=== PATIENT | male | born 1985 | race Caucasian/White ===

== ENCOUNTER 2017-01-20 20:32 | Observation (INO) | payer OTHER ==
[~2017-01-20] VITALS: Ht 177.8 cm; Wt 112.2 kg
[~2017-01-20 20:32] MED LIST: Z.0.NO CURRENT MEDS
[2017-01-20 20:35] VITALS: BP 169/87; PULSE 99; RESP 16; TEMP 98.4; O2SAT 99
--- NOTE | 2017-01-20 22:06 | RADRPT ---
EXAM DATE/TIME: 01/20/2017 20:58 [place] COMPARISON: No previous studies available for comparison. INDICATIONS : Chest pain. MEDICAL HISTORY : None. SURGICAL HISTORY : None. ENCOUNTER: Initial ACUITY: 3 days PAIN SCORE: 6/10 LOCATION: Bilateral chest FINDINGS: PA and lateral views of the chest demonstrate the lungs to be symmetrically aerated without evidence of mass, infiltrate or effusion. The cardiomediastinal contours are unremarkable. Osseous structure s are intact. CONCLUSION: Normal examination. Tru Chacko MD on January 20, 2017 at 22:04 Board Certified Radiologist. This report was verified electronically.
--- NOTE | 2017-01-20 22:36 | PD ---
HPI Chief Complaint: Chest Pain Time Seen by Provider: 22:35 Travel History International Travel<30 days: No Contact w/Intl Traveler<30days: No Traveled to known affect area: No History of Present Illness HPI 31-year-old male came to the emergency room with history of chest pain for past 1 week. Patient says that the pain is in different locations of his chest mostly anteriorly. He is also been getting it on the left side of his chest just below his left breast. It concerned him because is not getting better and patient wanted to make sure that it is not his heart. No aggravating or relieving factors identified. He is otherwise a healthy person. 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 However he stopped taking it 6 months ago because his primary care told him it was not needed. Currently his pain is 0 out of 10. Vital signs were stable. Patient does not appear to be in any significant distress. He is not a smoker. His maternal grandmother of heart attack in her 60s. No respiratory distress, shortness of breath, syncopal episode or any other associated symptoms. [facility] Past Medical History Narrative Medical List of his past medical, surgical, social and family history is reviewed from the nursing note. Asthma: Yes Social History Alcohol Use: Yes (SOCIAL) Tobacco Use: No Allergies-Medications (Allergen,Severity, Reaction): Coded Allergies: succinylcholine (Verified Allergy, Severe, 01/20/17) Comments List of his allergies reviewed from the nursing note. Reported Meds & Prescriptions Reported Meds & Active Scripts Active Reported No Current Meds (Miscellaneous Medication) [facility] Narrative Medication List of his home medications reviewed from the nursing note. Review of Systems Except as stated in HPI: all other systems reviewed are Neg Cardiovascular: Positive: Chest Pain or Discomfort Physical Exam Narrative GENERAL: Awake, alert, no obvious distress SKIN: Focused skin assessment warm/dry. HEAD: Atraumatic. Normocephalic. EYES: Pupils equal and round. No scleral icterus. No injection or drainage. ENT: No nasal bleeding or discharge. Mucous membranes pink and moist. NECK: Trachea midline. No JVD. CARDIOVASCULAR: Regular rate and rhythm. No murmur appreciated. RESPIRATORY: No accessory muscle use. Clear to auscultation. Breath sounds equal bilaterally. GASTROINTESTINAL: Abdomen soft, non-tender, nondistended. Hepatic and splenic margins not palpable. MUSCULOSKELETAL: No obvious deformities. No clubbing. No cyanosis. No edema. NEUROLOGICAL: Awake and alert. No obvious cranial nerve deficits. Motor grossly within normal limits. Normal speech. PSYCHIATRIC: Appropriate mood and affect; insight and judgment normal. Data Data Last Documented VS Vital Signs Date Time Temp Pulse Resp B/P (MAP) Pulse Ox O2 Delivery O2 Flow Rate FiO2 01/20/17 22:38 70 98 Room Air 01/20/17 22:33 (114) 01/20/17 20:35 98.4 16 Orders Orders Electrocardiogram (01/20/17 20:45) Basic Metabolic Panel (Bmp) (01/20/17 20:45) Complete Blood Count With Diff (01/20/17 20:45) Chest, Pa & Lat (01/20/17 20:45) D-Dimer (01/20/17 22:46) Aspirin Chew (Aspirin Chew) (01/20/17 23:00) Ketorolac Inj (Toradol Inj) (01/20/17 23:00) Troponin I (01/20/17 23:24) Labs Laboratory Tests Test 01/20/17 21:40 01/20/17 22:50 White Blood Count 9.4 TH/MM3 Red Blood Count 5.28 MIL/MM3 Hemoglobin 15.7 GM/DL Hematocrit 45.6 % Mean Corpuscular Volume 86.3 FL Mean Corpuscular Hemoglobin 29.8 PG Mean Corpuscular Hemoglobin Concent 34.5 % Red Cell Distribution Width 13.0 % Platelet Count 310 TH/MM3 Mean Platelet Volume 10.2 FL Neutrophils (%) (Auto) 51.3 % Lymphocytes (%) (Auto) 36.4 % Monocytes (%) (Auto) 7.5 % Eosinophils (%) (Auto) 3.7 % Basophils (%) (Auto) 1.1 % Neutrophils # (Auto) 4.8 TH/MM3 Lymphocytes # (Auto) 3.4 TH/MM3 Monocytes # (Auto) 0.7 TH/MM3 Eosinophils # (Auto) 0.4 TH/MM3 Basophils # (Auto) 0.1 TH/MM3 CBC Comment DIFF FINAL Differential Comment Blood Urea Nitrogen 11 MG/DL Creatinine 0.92 MG/DL Random Glucose 108 MG/DL Calcium Level 9.5 MG/DL Sodium Level 138 MEQ/L Potassium Level 3.7 MEQ/L Chloride Level 104 MEQ/L Carbon Dioxide Level 24.2 MEQ/L Anion Gap 10 MEQ/L Estimat Glomerular Filtration Rate 95 ML/MIN D-Dimer Quantitative (PE/DVT) LESS THAN 0.19 MG/L FEU [facility] Medical Decision Making Medical Screen Exam Complete: Yes Emergency Medical Condition: Yes Medical Record Reviewed: Yes Interpretation(s) Twelve-lead EKG was reviewed by me. Normal sinus rhythm, normal axis, nonspecific ST-T wave changes. Heart rate of 68 bpm. Differential Diagnosis ACS, non-STEMI, nonspecific chest pain, PE Narrative Course 12:02 AM chest x-rays within normal limits. D-dimer is negative and I'm comfortable ruling out PE based on that. CBC and BMP is within normal limit. His troponin is negative as well. Patient has a remote family history of coronary artery disease. Since this has been going on for past 1 week on and off I would like to keep him and chest pain center and rule out ACS as per the marine oiler's discretion. Procedures EKG Prior to Arrival: No Diagnosis Primary Impression: Chest pain Qualified Codes: R07.9 - Chest pain, unspecified Admitting Information Admitting Physician Requests: Observation Alpa Barnett MD Jan 20, 2017 22:36
[2017-01-20] MEDS ORDERED: ASPIRIN 81 MG CHEW TAB CHEW ONE (23:00)
[2017-01-20] MEDS ORDERED: KETOROLAC TROMETHAMINE 30 MG/ML (IVP) VIAL IV PUSH ONE (23:00)
[2017-01-20 23:11] LABS: BICARBONATE 24.2 MEQ/L (21.0-32.0); POTASSIUM 3.7 MEQ/L (3.5-5.1)
[2017-01-20 23:13] LABS: AUTOMATED NEUTROPHIL # 4.8 TH/MM3 (1.8-7.7); BASOPHIL # 0.1 TH/MM3 (0-0.2); BASOPHIL % 1.1 % (0.0-2.0); EOSINOPHIL # 0.4 TH/MM3 (0-0.4); EOSINOPHIL % 3.7 % (0.0-4.0); HEMATOCRIT 45.6 % (39.0-51.0); HEMO FLAGS DIFF FINAL; LYMPH % 36.4 % (9.0-44.0); LYMPHOCYTE # 3.4 TH/MM3 (1.0-4.8); MEAN CELL VOLUME 86.3 FL (80.0-100.0); MEAN CORPUSCULAR HEMOGLOBIN 29.8 PG (27.0-34.0); MEAN CORPUSCULAR HGB CONC 34.5 % (32.0-36.0); MONO % 7.5 % (0.0-8.0); NEUT % 51.3 % (16.0-70.0); PLATELET COUNT 310 TH/MM3 (150-450); RED BLOOD COUNT 5.28 MIL/MM3 (4.50-5.90); WHITE BLOOD COUNT 9.4 TH/MM3 (4.0-11.0)
[2017-01-21] MEDS ORDERED: ONDANSETRON HCL 4 MG/2 ML VIAL IV PUSH PRN (00:15)
[2017-01-21] MEDS ORDERED: ACETAMINOPHEN 500 MG CPLT PO PRN (00:15)
[2017-01-21] MEDS ORDERED: NITROGLYCERIN 0.4 MG SL 25 TABS/BTL SL PRN (00:15)
[2017-01-21] MEDS ORDERED: SODIUM CHLORIDE 0.9% FLUSH 10 ML FLUSH IV FLUSH PRN (00:15)
[2017-01-21] MEDS ORDERED: CETI-1 PO (00:47)
[2017-01-21] MEDS ORDERED: FLUT1SPR5 EACH NARE (00:47)
[2017-01-21 01:28] LABS: CREATINE KINASE 121 U/L (39-308)
[2017-01-21 01:40] LABS: CKMB 0.9 NG/ML (0.5-3.6)
[2017-01-21 01:49] VITALS: BP 125/63; PULSE 60; RESP 18; O2SAT 98
[2017-01-21 04:05] VITALS: BP 109/61; PULSE 65; RESP 16; O2SAT 98
[2017-01-21 04:42] LABS: CREATINE KINASE 133 U/L (39-308)
[2017-01-21 04:55] LABS: CKMB 0.9 NG/ML (0.5-3.6)
[2017-01-21 06:39] VITALS: PULSE 64; RESP 18; O2SAT 100
[2017-01-21 07:42] VITALS: BP 117/61; PULSE 80; RESP 20; O2SAT 100
--- NOTE | 2017-01-21 08:49 | HHI.HP ---
HPI Primary Care Physician Preston Dorado, III Chief Complaint Chest pain History of Present Illness This is a 31-year-old male that presents to ED via private vehicle complaining of intermittent left-sided chest discomfort for 1 week. He's found nothing to bring on the discomfort. States they've been very random. Usually lasts seconds when occurs. No associated shortness breath, nausea, or diaphoresis. States the worst discomfort occurred when it was a little lower on the left side of his chest and then it radiated to the left side of his back but other than that the discomfort never radiated.. That also lasted seconds. Eyes cardiac history. Denies recent illnesses. Review of Systems General: Patient denies fevers, chills recent, and recent travel HEENT: Patient denies headache, sore throat, difficulty swallowing. Cardiovascular: Has the chest discomfort as mentioned above. Denies sensation of heart beating rapidly or irregularly. No syncope. Denies diaphoresis. Respiratory: Denies shortness of breath or inspirational chest discomfort. Denies coughing wheezing or hemoptysis. GI: Patient denies nausea, vomiting, diarrhea, abdominal pain, bloody stools. Musculoskeletal: Patient denies joint pain or edema. Denies calf pain or edema. Neurovascular: Patient denies numbness, tingling, weakness in extremities. Denies headache. Endocrine: Denies polyuria and polydipsia. Hematologic: Denies easy bruising. Skin: Denies rash or itching. Past Family Social History Allergies: Coded Allergies: succinylcholine (Verified Allergy, Severe, 01/20/17) cat dander (Unverified Allergy, Intermediate, Sneezing, 01/21/17) grass pollen (Unverified Allergy, Intermediate, Sneezing, 01/21/17) shellfish derived (Unverified Adverse Reaction, Severe, Anaphylaxis, 01/21) Past Medical History Denies hypertension, hyperlipidemia, diabetes, and known CAD. Past Surgical History Denies. Reported Medications Reported Meds & Active Scripts Active Reported Flonase Nasal [place] (Fluticasone Nasal [place]) 50 Mcg/Act [place] 50 Mcg EACH NARE BID Active Ordered Medications Current Medications Medications (Trade) Dose Ordered Sig/Lul Route Start Time Stop Time Status Last Admin (NS Flush) 2 ml UNSCH PRN IV FLUSH 01/21/17 00:15 (NS Flush) 2 ml BID IV FLUSH 01/21/17 09:00 (Tylenol) 500 mg Q4H PRN PO 01/21/17 00:15 (Zofran Inj) 4 mg Q6H PRN IV PUSH 01/21/17 00:15 (Nitrostat Sl) 0.4 mg Q5M PRN SL 01/21/17 00:15 Family History Denies family history of CAD. Social History Nonsmoker. Occasional alcohol. Denies illicit drugs. Physical Exam Vital Signs Vital Signs Date Time Temp Pulse Resp B/P (MAP) Pulse Ox O2 Delivery O2 Flow Rate FiO2 01/21/17 07:42 80 20 117/61 (79) 100 Room Air 01/21/17 06:39 64 18 100 Room Air 01/21/17 06:24 21 01/21/17 04:05 65 16 109/61 (77) 98 Room Air 01/21/17 01:49 60 18 125/63 (83) 98 Room Air 01/20/17 22:38 70 98 Room Air 01/20/17 22:33 (114) 01/20/17 20:35 98.4 99 16 169/87 (114) 99 Room Air Physical Exam GENERAL: This is a well-nourished, well-developed patient, in no apparent distress. Patient speaks in clear complete sentences. Patient is pleasant. HEENT: Head is atraumatic and normocephalic. Neck is supple without lymphadenopathy and trachea is midline. No JVD or carotid bruits. CARDIOVASCULAR: Regular rate and rhythm without murmurs, gallops, or rubs. RESPIRATORY: Clear to auscultation. Breath sounds equal bilaterally. No wheezes , rales, or rhonchi. Chest wall is nontender. No use of accessory muscles. GASTROINTESTINAL: Abdomen is nontender, nondistended. Abdomen soft. No obvious pulsatile mass or bruit. No CVA tenderness. Strong femoral pulses bilaterally. Normal bowel sounds in all quadrants. MUSCULOSKELETAL: Patient is moving upper and lower extremities freely. No calf tenderness or edema, no Homans sign. Strong pulses in upper and lower extremities. NEUROLOGICAL: Patient is alert and oriented. Cranial nerves 2-12 are grossly intact. No focal deficits and speech is clear. SKIN: No rash and turgor is normal. Laboratory Laboratory Tests Test 01/20/17 21:40 01/20/17 22:50 01/21/17 00:50 01/21/17 03:55 White Blood Count 9.4 Red Blood Count 5.28 Hemoglobin 15.7 Hematocrit 45.6 Mean Corpuscular Volume 86.3 Mean Corpuscular Hemoglobin 29.8 Mean Corpuscular Hemoglobin Concent 34.5 Red Cell Distribution Width 13.0 Platelet Count 310 Mean Platelet Volume 10.2 Neutrophils (%) (Auto) 51.3 Lymphocytes (%) (Auto) 36.4 Monocytes (%) (Auto) 7.5 Eosinophils (%) (Auto) 3.7 Basophils (%) (Auto) 1.1 Neutrophils # (Auto) 4.8 Lymphocytes # (Auto) 3.4 Monocytes # (Auto) 0.7 Eosinophils # (Auto) 0.4 Basophils # (Auto) 0.1 CBC Comment DIFF FINAL Differential Comment Blood Urea Nitrogen 11 Creatinine 0.92 Random Glucose 108 Calcium Level 9.5 Sodium Level 138 Potassium Level 3.7 Chloride Level 104 Carbon Dioxide Level 24.2 Anion Gap 10 Estimat Glomerular Filtration Rate 95 Troponin I LESS THAN 0.02 LESS THAN 0.02 LESS THAN 0.02 D-Dimer Quantitative (PE/DVT) LESS THAN 0.19 Total Creatine Kinase 121 133 Creatine Kinase MB 0.9 0.9 Result Diagram: 01/20/17213901/20/172139 Imaging Last 48 hours Impressions Chest X-Ray 01/20/172044 Signed Impressions: Service Date/Time: Friday, January 20, 2017 20:58 - CONCLUSION: Normal examination. Tru Chacko MD Course EKGs are sinus rhythm without significant ST segment depressions or elevations. Caprini VTE Risk Assessment Caprini VTE Risk Assessment: No/Low Risk (score <= 1) Caprini Risk Assessment Model Point Value = 1 Point Value = 2 Point Value = 3 Point Value = 5 Age 41-60 Minor surgery BMI > 25 kg/m2 Swollen legs Varicose veins or History of unexplained or recurrent spontaneous Oral contraceptives or hormone replacement Sepsis (< 1 month) Serious lung disease, including pneumonia (< 1 month) Abnormal pulmonary function Acute myocardial infarction Congestive heart failure (< 1 month) History of inflammatory bowel disease Medical patient at bed rest Age 61-74 Arthroscopic surgery Major open surgery (> 45 min) Laparoscopic surgery (> 45 min) Malignancy Confined to bed (> 72 hours) Immobilizing plaster cast Central venous access Age >= 75 History of VTE Family history of VTE Factor V Leiden Prothrombin [id number] Lupus anticoagulant Anticardiolipin antibodies Elevated serum homocysteine Heparin-induced thrombocytopenia Other congenital or acquired thrombophilia Stroke (< 1 month) Elective arthroplasty Hip, pelvis, or leg fracture Acute spinal cord injury (< 1 month) Prophylaxis Regimen Total Risk Factor Score Risk Level Prophylaxis Regimen 0-1 Low Early ambulation 2 Moderate Order ONE of the following: *Sequential Compression Device (SCD) *Heparin 5000 units SQ BID 3-4 Higher Order ONE of the following medications: *Heparin 5000 units SQ TID *Enoxaparin/Lovenox 40 mg SQ daily (WT < 150 kg, CrCl > 30 mL/min) *Enoxaparin/Lovenox 30 mg SQ daily (WT < 150 kg, CrCl > 10-29 mL/min) *Enoxaparin/Lovenox 30 mg SQ BID (WT < 150 kg, CrCl > 30 mL/min) AND/OR *Sequential Compression Device (SCD) 5 or more Highest Order ONE of the following medications: *Heparin 5000 units SQ TID (Preferred with Epidurals) *Enoxaparin/Lovenox 40 mg SQ daily (WT < 150 kg, CrCl > 30 mL/min) *Enoxaparin/Lovenox 30 mg SQ daily (WT < 150 kg, CrCl > 10-29 mL/min) *Enoxaparin/Lovenox 30 mg SQ BID (WT < 150 kg, CrCl > 30 mL/min) AND *Sequential Compression Device (SCD) Assessment and Plan Assessment and Plan * Chest pain: Patient will continue to have serial cardiac enzymes and EKGs for ruling out purposes. His discomforts appear to be atypical. He was seen by Dr. Hilario cardiology and the chest pain center. He will undergo a Pk protocol ETT and be discharged if stress test is nonischemic with instructions to follow-up with PCP. Return to ED for interval issues. Patient is stable this time. He is agreeable to this plan. Jayy Willams Jan 21, 2017 08:49
[2017-01-21] MEDS ORDERED: SODIUM CHLORIDE 0.9% FLUSH 10 ML FLUSH IV FLUSH SCH (09:00)
--- NOTE | 2017-01-21 09:33 | HHI.DCPOC ---
Discharge Care Plan Diagnosis: (1) Chest pain Goals to Promote Your Health * To prevent worsening of your condition and complications * To maintain your health at the optimal level Directions to Meet Your Goals Take your medications as prescribed Follow your dietary instruction Follow activity as directed Keep your appointments as scheduled Take your immunizations and boosters as scheduled If your symptoms worsen call your PCP, if no PCP go to Urgent Care Center or Emergency Room Smoking is Dangerous to Your Health. Avoid second hand smoke Call the 24-hour hour crisis hotline for domestic abuse at Jayy Willams Jan 21, 2017 09:33
--- NOTE | 2017-01-21 16:21 | EKG ---
Date Performed: 01/21/2017 Time Performed: 01:02:09 PTAGE: 31 years EKG: SINUS BRADYCARDIA BORDERLINE ECG Since PREVIOUS TRACING , no significant change noted DOCTOR: Darcie Hilario Interpretating Date/Time 01/21/2017 16:21:03
--- NOTE | 2017-01-21 16:23 | EKG ---
Date Performed: 01/21/2017 Time Performed: 04:03:18 PTAGE: 31 years EKG: Sinus rhythm NORMAL ECG Since PREVIOUS TRACING , no significant change noted PREVIOUS TRACIN01/15/2017 19.58 DOCTOR: Darcie Hilario Interpretating Date/Time 01/21/2017 16:22:33
--- NOTE | 2017-01-21 16:31 | TR ---
Date Performed: 01/21/2017 Time Performed: 09:08:05 DOCTOR: Darcie Hilario DRUG LIST: CLINICAL HISTORY: REASON FOR TEST: REASON FOR ENDING: OBSERVATION: CONCLUSION: KAM PROTOCOL ETT. NO CP. TEST STOPPED AFTER EXCEEDING GOAL HR SECONDARY TO SOB AND LEG FATIGUE.Maximum TN=154 Resting AV=668/88 Maximum SY=081/82 Total Exercise Time=8:01 COMMENTS:
--- NOTE | 2017-01-21 16:36 | EKG ---
Date Performed: 01/20/2017 Time Performed: 21:43:20 PTAGE: 31 years EKG: Sinus rhythm NONSPECIFIC T-WAVE ABNORMALITY BORDERLINE ECG NO PREVIOUS TRACING DOCTOR: Darcie Hilario Interpretating Date/Time 01/21/2017 16:35:20
== END 2017-01-21 10:14 | disposition home or self-care (01) ==
LOC: NEPC 20:32 → NEDA 01-21 00:13 → NEDH 01-21 04:13
PROVIDERS: ADMIT Internal Medicine Interventional Cardiology; ATTEND Internal Medicine Interventional Cardiology
DX: R07.89 Other chest pain (principal); R00.1 Bradycardia, unspecified; J45.909 Unspecified asthma, uncomplicated; Z82.49 Family history of ischemic heart disease and other diseases of the circulatory system
CPT/HCPCS: 71020; 80048; 82550; 82552; 84484; 85025; 85379; 93005; 93017; 96374; 99285; G0378; J1885